=== PATIENT | male | born 1990 | race Caucasian/White ===

== ENCOUNTER 2019-03-15 14:13 | Emergency (ER) | payer OTHER ==
[~2019-03-15] VITALS: Ht 172.7 cm; Wt 90.7 kg
[2019-03-15 16:14] LABS: INFLUENZA A ANTIGEN Negative (Negative); INFLUENZA B ANTIGEN Negative (Negative)
[2019-03-15] MEDS ORDERED: TYLENOL WITH CO1 TA1 PO (16:21)
[2019-03-15 16:38] VITALS: BP 114/73
== END 2019-03-15 16:38 | disposition home or self-care (01) ==
LOC: M.ERS 14:13
PROVIDERS: Physician Assistant
DX: B34.9 Viral infection, unspecified (principal); F17.200 Nicotine dependence, unspecified, uncomplicated

== ENCOUNTER 2020-08-12 13:49 | Emergency (ER) | payer OTHER ==
[~2020-08-12] VITALS: Ht 182.9 cm; Wt 90.7 kg
[~2020-08-12 13:49] MED LIST: TYLENOL WITH CO1 TA1 PO
[2020-08-12 14:23] LABS: HEMATOCRIT 40.2 % (42.0-52.0); HEMOGLOBIN 13.6 gm/dL (14.0-18.0); MCH 28.2 pg (26.0-34.0); MCHC 33.9 g/dL (28.0-37.0); MCV 83.2 fL (80.0-100.0); MPV 8.4 fl. (7.2-11.1); NUCLEATED RBCS 0 /100WBC; PLATELET COUNT* 180 thou/uL (150-400); RBC 4.83 mil/uL (4.50-6.00); RDW-CV 14.1 % (10.5-14.5); WBC 6.2 thou/uL (4.0-11.0)
[2020-08-12 14:40] LABS: CALCIUM 8.7 mg/dL (8.5-10.1); CREATININE 0.9 mg/dL (0.6-1.3); POTASSIUM 3.8 mmol/L (3.5-5.1)
[2020-08-12 14:50] LABS: ALBUMIN 3.7 g/dL (3.4-5.0); MAGNESIUM 1.8 mg/dL (1.8-2.4); TOTAL BILIRUBIN 0.2 mg/dL (<0.1-1.0); TOTAL PROTEIN 7.2 g/dL (6.4-8.2)
[2020-08-12 15:08] LABS: ABSOLUTE EOSINOPHILS 0.2 thou/uL (0.0-0.7); ABSOLUTE LYMPHOCYTES 2.4 thou/uL (0.8-5.3); ABSOLUTE MONOCYTES 0.4 thou/uL (0.0-1.2); ABSOLUTE NEUTROPHILS 3.2 thou/uL (1.6-8.1); PLATELET ESTIMATE ADEQUATE
--- NOTE | 2020-08-12 15:37 | EKG ---
[place] [address] ELECTROCARDIOGRAM REPORT Name: JAIMIE RODRIGUEZ Room: [facility]#: [id number] Admission: 08/12/20 Attend Phys: Discharge: Date of : 88 Date of Service: 08/12/20 1358 Report #: [id number] THIS REPORT FOR: //name// [facility] ED Test Date: 2020-08-12 Test Time: 13:58:06 Pat Name: JAIMIE VALLES Department: Room: Gender: Interlocker: KIARRA : 1990 Requested By: Xavier Martinez Order Number: [id number] MD: Lawson Jack Measurements Intervals Geronimo Rate: 106 P: 60 IA: 157 QRS: 79 QRSD: 92 T: 16 QT: 344 QTc: 457 Interpretive Statements Sinus tachycardia No previous ECG available for comparison Electronically Signed On 08-12-2020 15:37:08 CDT by Lawson Jack [email or web address] <ELECTRONICALLY SIGNED> By: Lawson Jack MD, [facility] 08/12/20 1537 1358 1358 Lawson Jack MD, FACC /EPI
[2020-08-12 17:30] VITALS: BP 131/80
== END 2020-08-12 17:30 | disposition left against medical advice (07) ==
LOC: M.ERS 13:49
PROVIDERS: Emergency Medicine Emergency Medical Services
DX: R07.89 Other chest pain (principal)